=== PATIENT | female | born 1990 | race Two or more races ===

== ENCOUNTER 2018-01-22 07:56 | Emergency (ER) | payer MEDICAID ==
[~2018-01-22] VITALS: Ht 157.5 cm; Wt 87.5 kg
[2018-01-22 08:26] VITALS: BP 119/72
[2018-01-22] MEDS ORDERED: ACETAMINOPHEN 325 MG TAB PO ONE (09:45)
== END 2018-01-22 10:52 | disposition home or self-care (01) ==
LOC: ER 07:56
DX: O20.0 Threatened abortion (principal); Z3A.12 12 weeks gestation of pregnancy; Y04.8XXA Assault by other bodily force, initial encounter; Y93.89 Activity, other specified; Y92.89 Other specified places as the place of occurrence of the external cause; Y99.8 Other external cause status
CPT/HCPCS: 36415; 76801; 84702